=== PATIENT | female | born 1940 | race Caucasian/White ===

== ENCOUNTER 2018-10-26 10:54 | Inpatient (IN) ==
[2018-10-31] MEDS ORDERED: traMADol 50 MG TABLET PO PRN (18:20)
[2018-10-31] MEDS ORDERED: Melatonin 3 MG TABLET PO PRN (18:20)
[2018-10-31] MEDS ORDERED: Sennosides 8.6 MG TABLET PO PRN (18:20)
[2018-10-31] MEDS ORDERED: Acyclovir 200 MG CAPSULE PO PRN (18:20)
[2018-10-31] MEDS: *HR* Rivaroxaban 10 MG TABLET PO SCH (19:32)
[2018-10-31] MEDS: Gabapentin 100 MG CAPSULE PO SCH (20:27)
[2018-10-31] MEDS: Famotidine 20 MG TABLET PO SCH (20:27)
[2018-10-31] MEDS: FluocinoNIDE 0.05% CRM 15 GM TUBE TP SCH (20:27)
[2018-10-31] MEDS: Furosemide 20 MG TABLET PO SCH (20:27)
[2018-11-01 05:39] LABS: Basophils % 0.4 %; Eosinophils # 0.2 K/mcL (0.0-0.6); Eosinophils % 2.4 %; Hemoglobin 8.7 g/dL (11.5-15.4); Immature Granulocytes % 6.4 % (0-4); Lymphocytes # 1.4 K/mcL (0.6-4.6); Lymphocytes % 14.8 %; Mean Corpuscular HGB Conc 31.1 g/dL (31.6-35.5); Mean Corpuscular Hemoglobin 30.2 pg (28.0-33.3); Mean Corpuscular Volume 97.2 fL (83.0-100.0); Mean Platelet Volume 9.2 fL (9.4-12.4); Monocytes # 0.8 K/mcL (0.0-1.3); Monocytes % 9.1 %; Neutrophils # 6.1 K/mcL (1.6-8.9); Platelet Count 157 K/mcL (140-400); Red Blood Count 2.88 M/mcL (3.82-4.97); Red Cell Distribution Width 17.6 % (11.5-14.5); Segmented Neutrophils % 66.9 %; White Blood Count 9.1 K/mcL (4.3-11.1)
[2018-11-01 05:53] LABS: BUN/Creatinine Ratio 22 (6-26); Blood Urea Nitrogen 17 mg/dL (8-23); Calcium 8.6 mg/dL (8.6-10.3); Carbon Dioxide 36 mEq/L (23-29); Chloride 91 mEq/L (98-107); Glucose 117 mg/dL (70-105); Osmolality,Calculated 279 (280-300); Potassium 3.1 mEq/L (3.5-5.1); Sodium 133 mEq/L (136-145); eGFR For African Americans > 60 (> 60); eGFR For Non-African Americans > 60 (> 60)
[2018-11-01] MEDS: Aspirin Enteric Coated 81 MG Tablet PO SCH (07:56)
[2018-11-01] MEDS: *HR* Rivaroxaban 10 MG TABLET PO SCH (07:56)
[2018-11-01] MEDS: Venlafaxine XR (24 HR) 75 MG CAP.ER.24H PO SCH (07:56)
[2018-11-01] MEDS: *HR* Amiodarone 200 MG TABLET PO SCH (07:56)
[2018-11-01] MEDS: Cholecalciferol (D-3) 1,000 UNIT (25MCG) TABLET PO SCH (07:56)
[2018-11-01] MEDS: Lactobacillus 1 EACH CAP.SPRINK PO SCH (07:56)
[2018-11-01] MEDS: Famotidine 20 MG TABLET PO SCH ×2 (07:56→20:30)
[2018-11-01] MEDS: Gabapentin 100 MG CAPSULE PO SCH ×3 (07:56→20:30)
[2018-11-01] MEDS: Furosemide 20 MG TABLET PO SCH ×2 (07:56→20:29)
[2018-11-01] MEDS: FluocinoNIDE 0.05% CRM 15 GM TUBE TP SCH ×2 (09:23→20:26)
--- NOTE | 2018-11-01 10:49 | Internal Med History&Physical ---
Date of Encounter: 11/01/18 Time of Encounter: 10:45 Assessment and Plan (1) S/P mitral valve repair Current visit: Yes Status: Acute Patient was transferred this facility for further rehabilitation due to weakness secondary to her cardiac surgery, in which she had both a try cuspid and a mitral valve repair, maze procedure and a ICD implantation. Patient had an uneventful recovery and currently denies any discomforts or shortness of breath. Surgical incision appears to be healing well. Therapy evaluation with recommendations pending. Continue with current plan of care. Patient educated on chest precautions and instructed on use of ISE. (2) S/P tricuspid valve repair Current visit: Yes Status: Acute As mentioned above patient's surgical incision appears healthy. We will continue to monitor (3) Afib Current visit: Yes Status: Chronic No acute issues. Patient's heart rate remains irregular with controlled rate less than 100. ICD [address]. We will continue with current medications and monitor as she progresses to therapy. Qualifiers: Atrial fibrillation type: paroxysmal Qualified Code(s): I48.0 - Paroxysmal atrial fibrillation (4) GALEN (obstructive sleep apnea) Current visit: Yes Status: Chronic No issues. Patient has her BiPAP from home a uses it nightly Internal Medicine - H&P: HPI Chief complaint: MV repair Admitted From: Hospital to Hospital Transfer Plans for Post Hospital Care: Home History of present illness: Ms. Sexton is a 77 year old female, who was admitted to this facility for rehabilitation following cardiac surgery. Patient was admitted to an [facility] where she received a mitral and tricuspid valve repair, a biatrial maze procedure and eventually had ICD implanted. Patient states that she continues to have atrial fibrillation after her maze procedure and that her surgeon decided to place the defibrillator. Otherwise, she had a uneventful recovery and was transferred to this facility for further rehabilitation due to generalized weakness secondary to her cardiac surgery. She states that her pain has been minimal and well controlled with current pain medications. She denies any dyspnea and states that she is been using her ISE well. Midline chest incision appears to be healing well. Small dressing to epigastric area from previous chest tube sites which is dry and intact. Patient has a history of mitral valve and tricuspid valve prolapse, CHF, pulmonary hypertension, atrial fibrillation, cardiomyopathy, and hypertension. Patient also has a history of GALEN a, which she uses a BiPAP nightly. Remote breath CA Past Med Surg Social Fam HX - Past Medical History Medical history: arthritis, atrial fibrillation, cancer, cardiomyopathy, CHF, hypertension, malignancy, valvular heart disease Additional medical history: water retention, hot flashes Psychiatric history: anxiety - Past Surgical History Surgical History: appendectomy, hysterectomy Additional surgical history: bilateral breast mastectomy. T&A. Left hip replacement. mitral and triscupid valve repair. Pacer/AICD - Social History Smoking Status: Former smoker Smokeless Tobacco Status: No Alcohol use: occasionally Drug use: none - Family History Mother Hx Family Cardiac Disorders: Yes (afib, rheumatic heart disease) Father Hx Family Cancer: Yes (prostate) Internal Medicine - H&P: Meds Cholecalciferol (Vitamin D3) [Vitamin D] 1,000 unit PO DAILY 08/22/17 [History] Effexor 75 mg PO DAILY 08/22/17 [History] Lasix 40 mg PO BID 08/22/17 [History] Rivaroxaban [Xarelto] 20 mg PO DAILY 08/22/17 [History] Potassium 20 meq PO DAILY 12/25/17 [History] Acetaminophen [Tylenol] 1,000 mg PO Q8H PRN 10/31/18 [History] Acyclovir [Zovirax] 800 mg PO TID PRN 10/31/18 [History] Amiodarone [Cordarone] 200 mg PO DAILY 10/31/18 [History] Aspirin Enteric Coated [Aspirin EC] 81 mg PO DAILY 10/31/18 [History] Atorvastatin [Lipitor] 40 mg PO HS 10/31/18 [History] Betamethasone Dipropionate 15 gm TP BID 10/31/18 [History] Carvedilol [Coreg] 3.125 mg PO BIDWM 10/31/18 [History] DiphenhydraMINE [Benadryl] 50 mg PO Q6H PRN 10/31/18 [History] Gabapentin [Neurontin] 100 mg PO TID 10/31/18 [History] Glucos Sul 2Kcl/MSM/Chond/C/Mn [Glucosamine Chondroitin Cap] 2 each PO DAILY 10/31/18 [History] Lactobacillus Combination No.8 [Adult Probiotic] 1 each PO DAILY 10/31/18 [History] Melatonin [Melatin] 6 mg PO HS PRN 10/31/18 [History] Polyethylene Glycol 3350 [MiraLAX] 17 gm PO DAILY 10/31/18 [History] Sennosides [Senokot] 8.6 mg PO HS PRN 10/31/18 [History] Tramadol HCl [Ultram] 50 mg PO Q8H PRN 10/31/18 [History] Allergy/AdvReac Type Severity Reaction Status Date / Time Amoxicillin [From Augmentin] Allergy Hives Verified 10/31/18 16:58 celecoxib [From Celebrex] Allergy Itching Verified 09/23/17 14:13 clavulanic acid Allergy Hives Verified 10/31/18 16:58 [From Augmentin] propoxyphene [From Darvon] Allergy Hallucinati Verified 08/22/17 10:16 ng adhesive tape AdvReac See Verified 10/31/18 16:58 Comments All Systems PM: A 10-system review of systems was performed and is negative for pertinent findings except as documented above in the HPI. - Constitutional Constitutional: as per HPI - EENT Eyes: as per HPI, no change in vision, no discharge, no pain, no photophobia Ears: as per HPI, no ear discharge, no ear pain, no tinnitus Nose, mouth and throat: as per HPI, no dysphagia, no nasal discharge, no neck pain, no sore throat - Breasts Breasts: as per HPI - Cardiovascular Cardiovascular ROS IM: as per HPI, no chest pain, no diaphoresis, no dyspnea, no lightheadedness, no palpitations, no syncope - Respiratory Respiratory: as per HPI, no cough, no dyspnea, no wheezing, no excessive phlegm production - Gastrointestinal Gastrointestinal: as per HPI, no abdominal pain, no diarrhea, no hematemesis, no hematochezia, no melena, no nausea, no vomiting - Genitourinary Genitourinary: as per HPI, no change in urinary stream, no dysuria, no flank pain, no hematuria - Musculoskeletal Musculoskeletal ROS IM: as per HPI, no numbness, no tingling - Integumentary Integumentary IM: as per HPI, no rash, no unusual bruising - Neurological Neurological ROS: as per HPI, no confusion, no convulsions, no focal weakness, no numbness, no tingling, no tremor(s) - Hematologic/Lymphatic Hematologic/Lymphatic: no easy bruising - Constitutional Vitals: Temp Pulse Resp BP Pulse Ox 97.9 F 88 17 134/77 98 11/01/18 07:10 11/01/18 07:10 11/01/18 07:10 11/01/18 10:12 11/01/18 07:10 General appearance: Present: A&O X 3, pleasant - Head Head exam: Present: atraumatic, normocephalic - Eye Eye exam: Present: PERRL, conjuntiva pink, sclera anicteric Pupils: Present: PERRL - Neck Neck exam general surgery: Present: supple, trachea midline. Absent: lymphadenopathy - Respiratory Respiratory exam: Present: decreased breath sounds, CTAB, rales. Absent: accessory muscle use, rhonchi, wheezes Additional comments: Patient noted to have fine posterior bibasilar rales, otherwise lungs clear. Respiratory effort appears relaxed. Patient denies any productive cough. - Cardiovascular Cardiovascular exam: Present: irregular rhythm, RRR, +S1, +S2. Absent: diastolic murmur, gallop, rubs, systolic murmur Additional comments: Patient continues with irregular heart rate with a controlled ventricular rate less than 100. Midline chest incision appears dry and intact. Small dressing to epigastric area from previous chest tube site appears dry and intact. Left subclavian surgical incision is dry and intact from previous ICD implant - GI/Abdominal GI/Abdominal exam: Present: normal bowel sounds, soft, no peritoneal signs. Absent: distended, tenderness - Extremities Exam Extremities exam: Present: warm, radial pulses palpable and symmetrical. Absent: calf tenderness, cyanotic, pedal edema - Neurological Exam Neurological exam: Present: CN II-XII intact, oriented X3, no focal deficits. Absent: pronater drift, facial droop, speech deficit - Skin Skin exam: Present: dry, intact Internal Med - H&P Results - Labs CBC & Chem 7: 11/01/18 05:25 11/01/18 05:25 Labs: Short CBC 11/01/18 Range/Units 05:25 WBC 9.1 (4.3-11.1) K/mcL Hgb 8.7 L (11.5-15.4) g/dL Hct 28.0 L (35.3-44.9) % Plt Count 157 (140-400) K/mcL Neutrophils # 6.1 (1.6-8.9) K/mcL BMP 11/01/18 05:25 Sodium 133 L Potassium 3.1 L Chloride 91 L Carbon Dioxide 36 H BUN 17 Creatinine 0.77 Glucose 117 H Calcium 8.6
[2018-11-02] MEDS: *HR* Rivaroxaban 10 MG TABLET PO SCH (08:53)
[2018-11-02] MEDS: Lactobacillus 1 EACH CAP.SPRINK PO SCH (08:53)
[2018-11-02] MEDS: Venlafaxine XR (24 HR) 75 MG CAP.ER.24H PO SCH (08:53)
[2018-11-02] MEDS: *HR* Amiodarone 200 MG TABLET PO SCH (08:53)
[2018-11-02] MEDS: Gabapentin 100 MG CAPSULE PO SCH ×3 (08:53→20:29)
[2018-11-02] MEDS: Famotidine 20 MG TABLET PO SCH ×2 (08:53→20:29)
[2018-11-02] MEDS: Furosemide 20 MG TABLET PO SCH ×2 (08:53→20:29)
[2018-11-02] MEDS: Cholecalciferol (D-3) 1,000 UNIT (25MCG) TABLET PO SCH (08:53)
[2018-11-02] MEDS: Aspirin Enteric Coated 81 MG Tablet PO SCH (08:53)
[2018-11-02] MEDS: FluocinoNIDE 0.05% CRM 15 GM TUBE TP SCH ×2 (08:54→20:29)
--- NOTE | 2018-11-02 11:10 | Internal Med Progress Note ---
Date of Encounter: 11/02/18 Time of Encounter: 11:07 - Assessment and plan (1) S/P mitral valve repair Current Visit: Yes Status: Acute Assessment and plan: No acute issues. Surgical incisions remains healthy. States pain tolerable with current meds. Denies any dyspnea. States therapy is going well. Continue on current meds and plan of care. (2) S/P tricuspid valve repair Current Visit: Yes Status: Acute Assessment and plan: No acute issues. Surgical incisions remains healthy. States pain tolerable with current meds. Denies any dyspnea. States therapy is going well. Continue on current meds and plan of care. (3) Afib Current Visit: Yes Status: Chronic Assessment and plan: Irregular HR with controlled ventricular rate at 90-100. No acute issues. Continue on current meds. Patient remains on Coreg. Also on Xarelto and ASA. Qualifiers: Atrial fibrillation type: paroxysmal Qualified Code(s): I48.0 - Paroxysmal atrial fibrillation (4) GALEN (obstructive sleep apnea) Current Visit: Yes Status: Chronic Assessment and plan: Continues compliant with BIPAP at night - Time Spent With Patient less than 15 minutes - Subjective Interval history: Patient appears relaxed and currently denies any discomforts or dyspnea. States compliance with ISE. States that therapy has been progressing well. - Constitutional Vitals: Temp Pulse Resp BP Pulse Ox 98.0 F 106 18 110/71 93 11/02/18 08:14 11/02/18 08:14 11/02/18 08:14 11/02/18 08:14 11/02/18 08:14 General appearance: Present: A&O X 3, pleasant - Head Head exam: Present: atraumatic, normocephalic - Eye Eye exam: Present: PERRL, conjuntiva pink, sclera anicteric Pupils: Present: PERRL - Neck Neck exam general surgery: Present: supple, trachea midline. Absent: lymphadenopathy - Respiratory Respiratory exam: Present: decreased breath sounds, CTAB, rales. Absent: accessory muscle use, rhonchi, wheezes Additional comments: fine posterior bibasilar rales, otherwise CTA. RR eupneic - Cardiovascular Cardiovascular exam: Present: RRR, +S1, +S2. Absent: diastolic murmur, gallop, rubs, systolic murmur Additional comments: Midline chest incision remains healthy and intact. Epigastric dsg from previous chest tube site remains dry and intact. Small left SC surgical incision for ICD remains healthy and intact. - GI/Abdominal GI/Abdominal exam: Present: normal bowel sounds, soft, no peritoneal signs. Absent: distended, tenderness - Extremities Exam Extremities exam: Present: pedal edema, warm, radial pulses palpable and symmetrical. Absent: calf tenderness, cyanotic Additional comments: slight nonpitting. - Neurological Exam Neurological exam: Present: CN II-XII intact, oriented X3, no focal deficits. Absent: pronater drift, facial droop, speech deficit - Skin Skin exam: Present: dry, intact Internal Medicine: Result - Labs CBC & Chem 7: 11/01/18 05:25 11/01/18 05:25 Consult Discharge Plan - Plan Referrals: Rupesh Ledesma [Primary Care Provider] -
[2018-11-02 14:10] LABS: Alanine Aminotransferase 44 Units/L (7-52); Albumin 3.5 g/dL (3.5-5.7); Albumin/Globulin Ratio 1.1 (1.1-2.2); Alkaline Phosphatase 145 Units/L (34-104); Aspartate Amino Transferase 42 Units/L (13-39); BUN/Creatinine Ratio 25 (6-26); Bilirubin,Total 0.6 mg/dL (0.3-1.0); Blood Urea Nitrogen 20 mg/dL (8-23); Calcium 8.7 mg/dL (8.6-10.3); Carbon Dioxide 34 mEq/L (23-29); Chloride 89 mEq/L (98-107); Globulin 3.1 g/dL (2.4-3.5); Glucose 124 mg/dL (70-105); Osmolality,Calculated 278 (280-300); Potassium 2.9 mEq/L (3.5-5.1); Sodium 132 mEq/L (136-145); Total Protein 6.6 g/dL (6.4-8.9); eGFR For African Americans > 60 (> 60); eGFR For Non-African Americans > 60 (> 60)
[2018-11-02] MEDS: Magnesium Oxide 400 MG TABLET PO SCH (20:29)
[2018-11-03] MEDS: Lactobacillus 1 EACH CAP.SPRINK PO SCH (07:49)
[2018-11-03] MEDS: *HR* Rivaroxaban 10 MG TABLET PO SCH (07:49)
[2018-11-03] MEDS: Aspirin Enteric Coated 81 MG Tablet PO SCH (07:49)
[2018-11-03] MEDS: Gabapentin 100 MG CAPSULE PO SCH ×3 (07:49→20:12)
[2018-11-03] MEDS: Furosemide 20 MG TABLET PO SCH ×2 (07:50→20:12)
[2018-11-03] MEDS: Venlafaxine XR (24 HR) 75 MG CAP.ER.24H PO SCH (07:50)
[2018-11-03] MEDS: Cholecalciferol (D-3) 1,000 UNIT (25MCG) TABLET PO SCH (07:50)
[2018-11-03] MEDS: Famotidine 20 MG TABLET PO SCH ×2 (07:50→20:13)
[2018-11-03] MEDS: Magnesium Oxide 400 MG TABLET PO SCH ×2 (07:50→20:12)
[2018-11-03] MEDS: *HR* Amiodarone 200 MG TABLET PO SCH (07:51)
[2018-11-03] MEDS: FluocinoNIDE 0.05% CRM 15 GM TUBE TP SCH ×2 (07:51→20:15)
--- NOTE | 2018-11-03 09:40 | Internal Med Progress Note ---
Date of Encounter: 11/03/18 Time of Encounter: 09:38 - Assessment and plan (1) S/P mitral valve repair Current Visit: Yes Status: Acute Assessment and plan: No acute issues. Surgical incisions remains healthy. States pain tolerable with current meds. Patient with complaints of slight dyspnea during ambulation to her room from therapy. Noted continue +2 edema to lower legs. Patient's heart rate slightly elevated and remains in atrial fibrillation. We will obtain labs and chest x-ray for further evaluation. Patient with history of CHF. States therapy is going well. Continue on current meds and plan of care. (2) S/P tricuspid valve repair Current Visit: Yes Status: Acute Assessment and plan: No acute issues. Surgical incisions remains healthy. States pain tolerable with current meds. Patient with complaints of slight dyspnea during ambulation to her room from therapy. Noted continue +2 edema to lower legs. Patient's heart rate slightly elevated and remains in atrial fibrillation. We will obtain labs and chest x-ray for further evaluation. Patient with history of CHF. States therapy is going well. Continue on current meds and plan of care. (3) Afib Current Visit: Yes Status: Chronic Assessment and plan: Irregular HR with controlled ventricular rate at 90-100. No acute issues. Continue on current meds. We will review labs when available. Patient has had issues with hypokalemia, requiring replacement Patient remains on Coreg. Also on Xarelto and ASA. Qualifiers: Atrial fibrillation type: paroxysmal Qualified Code(s): I48.0 - Paroxysmal atrial fibrillation (4) GALEN (obstructive sleep apnea) Current Visit: Yes Status: Chronic Assessment and plan: Continues compliant with BIPAP at night (5) CHF (congestive heart failure) Current Visit: Yes Status: Acute Assessment and plan: Patient with complaints of slight dyspnea during ambulation to her room from therapy. Noted continue +2 edema to lower legs. Patient's heart rate slightly elevated and remains in atrial fibrillation. We will obtain labs and chest x- ray for further evaluation. Patient with history of CHF. States therapy is going well. Continue on current meds and plan of care. Qualifiers: Heart failure type: unspecified Heart failure chronicity: unspecified Qualified Code(s): I50.9 - Heart failure, unspecified - Time Spent With Patient less than 15 minutes - Subjective Interval history: Patient appears relaxed and currently denies any discomforts , stating that her pain has been well-controlled with current medications. Patient has complaints of dyspnea during exertion of ambulating during therapy. Denies any productive cough. Patient also voiced concerns about her chest tube insertion sites with the left epigastric chest tube site showing a minimal amount of his type drainage. - Constitutional Vitals: Temp Pulse Resp BP Pulse Ox 97.7 F 98 14 118/70 99 11/03/18 07:27 11/03/18 07:45 11/03/18 07:27 11/03/18 07:45 11/03/18 07:27 General appearance: Present: A&O X 3, pleasant - Head Head exam: Present: atraumatic, normocephalic - Eye Eye exam: Present: PERRL, conjuntiva pink, sclera anicteric Pupils: Present: PERRL - Neck Neck exam general surgery: Present: supple, trachea midline. Absent: lymphadenopathy - Respiratory Respiratory exam: Present: decreased breath sounds, CTAB, rales. Absent: accessory muscle use, rhonchi, wheezes Additional comments: Patient shows fine care basilar rales, otherwise lungs are clear to auscultation. Respiratory effort appears relaxed. - Cardiovascular Cardiovascular exam: Present: irregular rhythm, RRR, +S1, +S2. Absent: diastolic murmur, gallop, rubs, systolic murmur Additional comments: Continues with irregular heart rate with controlled ventricular rate less than 100 - GI/Abdominal GI/Abdominal exam: Present: normal bowel sounds, soft, no peritoneal signs. Absent: distended, tenderness - Extremities Exam Extremities exam: Present: warm, radial pulses palpable and symmetrical. Absent: calf tenderness, cyanotic, pedal edema - Neurological Exam Neurological exam: Present: CN II-XII intact, oriented X3, no focal deficits. Absent: pronater drift, facial droop, speech deficit - Skin Skin exam: Present: dry, intact Additional comments: Midline chest incision appears to be healing well area patient with 2 chest tube insertion sites to the epigastric area which remains slightly gapped open. Left chest tube insertion site and has a minimal amount of serous type drainage present Internal Medicine: Result - Labs CBC & Chem 7: 11/01/18 05:25 11/02/18 13:13 Labs: BMP 11/02/18 13:13 Sodium 132 L Potassium 2.9 L Chloride 89 L Carbon Dioxide 34 H BUN 20 Creatinine 0.81 Glucose 124 H Calcium 8.7 Liver Function 11/02/18 Range/Units 13:13 Total Bilirubin 0.6 (0.3-1.0) mg/dL AST 42 H (13-39) Units/L ALT 44 (7-52) Units/L Alkaline Phosphatase 145 H (34-104) Units/L Albumin 3.5 (3.5-5.7) g/dL Consult Discharge Plan - Plan Referrals: Rupesh Ledesma [Primary Care Provider] -
[2018-11-03 10:56] LABS: Hematocrit 29.7 % (35.3-44.9); Hemoglobin 9.1 g/dL (11.5-15.4); Mean Corpuscular HGB Conc 30.6 g/dL (31.6-35.5); Mean Platelet Volume 9.9 fL (9.4-12.4); Platelet Count 191 K/mcL (140-400); Red Blood Count 3.03 M/mcL (3.82-4.97); Red Cell Distribution Width 17.9 % (11.5-14.5); White Blood Count 9.6 K/mcL (4.3-11.1)
[2018-11-03 11:11] LABS: Alanine Aminotransferase 40 Units/L (7-52); Albumin 3.7 g/dL (3.5-5.7); Albumin/Globulin Ratio 1.1 (1.1-2.2); Alkaline Phosphatase 158 Units/L (34-104); Aspartate Amino Transferase 36 Units/L (13-39); BUN/Creatinine Ratio 23 (6-26); Bilirubin,Total 0.8 mg/dL (0.3-1.0); Blood Urea Nitrogen 18 mg/dL (8-23); Calcium 8.7 mg/dL (8.6-10.3); Carbon Dioxide 35 mEq/L (23-29); Chloride 90 mEq/L (98-107); Globulin 3.3 g/dL (2.4-3.5); Glucose 126 mg/dL (70-105); Magnesium 1.9 mg/dL (1.6-2.6); Osmolality,Calculated 281 (280-300); Potassium 3.3 mEq/L (3.5-5.1); Sodium 134 mEq/L (136-145); eGFR For African Americans > 60 (> 60); eGFR For Non-African Americans > 60 (> 60)
[2018-11-03] MEDS ORDERED: Furosemide 40 MG TABLET PO ONE (12:15)
[2018-11-04 06:35] LABS: Basophils % 0.5 %; Eosinophils # 0.2 K/mcL (0.0-0.6); Eosinophils % 3.2 %; Hematocrit 25.5 % (35.3-44.9); Hemoglobin 7.9 g/dL (11.5-15.4); Immature Granulocytes % 1.4 % (0-4); Lymphocytes % 15.4 %; Mean Corpuscular Hemoglobin 30.7 pg (28.0-33.3); Mean Corpuscular Volume 99.2 fL (83.0-100.0); Mean Platelet Volume 9.7 fL (9.4-12.4); Monocytes # 0.6 K/mcL (0.0-1.3); Monocytes % 8.7 %; Neutrophils # 4.6 K/mcL (1.6-8.9); Platelet Count 167 K/mcL (140-400); Red Blood Count 2.57 M/mcL (3.82-4.97); Red Cell Distribution Width 18.2 % (11.5-14.5); Segmented Neutrophils % 70.8 %; White Blood Count 6.5 K/mcL (4.3-11.1)
[2018-11-04 06:48] LABS: BUN/Creatinine Ratio 21 (6-26); Blood Urea Nitrogen 18 mg/dL (8-23); Calcium 8.4 mg/dL (8.6-10.3); Carbon Dioxide 39 mEq/L (23-29); Chloride 90 mEq/L (98-107); Glucose 105 mg/dL (70-105); Magnesium 2.1 mg/dL (1.6-2.6); Osmolality,Calculated 284 (280-300); Potassium 2.8 mEq/L (3.5-5.1); Sodium 136 mEq/L (136-145); eGFR For African Americans > 60 (> 60); eGFR For Non-African Americans > 60 (> 60)
[2018-11-04] MEDS: Aspirin Enteric Coated 81 MG Tablet PO SCH (09:07)
[2018-11-04] MEDS: Furosemide 20 MG TABLET PO SCH (09:07)
[2018-11-04] MEDS: Venlafaxine XR (24 HR) 75 MG CAP.ER.24H PO SCH (09:08)
[2018-11-04] MEDS: Magnesium Oxide 400 MG TABLET PO SCH ×2 (09:08→21:04)
[2018-11-04] MEDS: *HR* Amiodarone 200 MG TABLET PO SCH (09:08)
[2018-11-04] MEDS: *HR* Rivaroxaban 10 MG TABLET PO SCH (09:08)
[2018-11-04] MEDS: Cholecalciferol (D-3) 1,000 UNIT (25MCG) TABLET PO SCH (09:09)
[2018-11-04] MEDS: Lactobacillus 1 EACH CAP.SPRINK PO SCH (09:09)
[2018-11-04] MEDS: Famotidine 20 MG TABLET PO SCH ×2 (09:09→21:04)
[2018-11-04] MEDS: Gabapentin 100 MG CAPSULE PO SCH ×3 (09:09→21:04)
[2018-11-04] MEDS: FluocinoNIDE 0.05% CRM 15 GM TUBE TP SCH ×2 (09:10→21:04)
--- NOTE | 2018-11-04 15:37 | Internal Med Progress Note ---
Date of Encounter: 11/04/18 Time of Encounter: 15:40 - Subjective Interval history: - Assessment and plan (1) S/P mitral valve repair Current Visit: Yes Status: Acute Assessment and plan: No acute issues. Surgical incisions remains healthy. States pain tolerable with current meds. Patient with complaints of slight dyspnea during ambulation to her room from therapy. Noted continue +2 edema to lower legs. Patient's heart rate slightly elevated and remains in atrial fibrillation. We will obtain labs and chest x-ray for further evaluation. Patient with history of CHF. States therapy is going well. Continue on current meds and plan of care. (2) S/P tricuspid valve repair Current Visit: Yes Status: Acute Assessment and plan: No acute issues. Surgical incisions remains healthy. States pain tolerable with current meds. Patient with complaints of slight dyspnea during ambulation to her room from therapy. Noted continue +2 edema to lower legs. Patient's heart rate slightly elevated and remains in atrial fibrillation. We will obtain labs and chest x-ray for further evaluation. Patient with history of CHF. States therapy is going well. Continue on current meds and plan of care. (3) Afib Current Visit: Yes Status: Chronic Assessment and plan: Irregular HR with controlled ventricular rate at 90-100. No acute issues. Continue on current meds. We will review labs when available. Patient has had issues with hypokalemia, requiring replacement Patient remains on Coreg. Also on Xarelto and ASA. Qualifiers: Atrial fibrillation type: paroxysmal Qualified Code(s): I48.0 - Paroxysmal atrial fibrillation (4) GALEN (obstructive sleep apnea) Current Visit: Yes Status: Chronic Assessment and plan: Continues compliant with BIPAP at night (5) CHF (congestive heart failure) Current Visit: Yes Status: Acute Assessment and plan: Patient with complaints of slight dyspnea during ambulation to her room from therapy. Noted continue +2 edema to lower legs. Patient's heart rate slightly elevated and remains in atrial fibrillation. We will obtain labs and chest x- ray for further evaluation. Patient with history of CHF. States therapy is going well. Continue on current meds and plan of care. Qualifiers: Heart failure type: unspecified Heart failure chronicity: unspecified Qualified Code(s): I50.9 - Heart failure, unspecified - Time Spent With Patient less than 15 minutes - Subjective Interval history: Patient that her pain has been well-controlled with current medications. Patient has complaints of dyspnea during exertion of ambulating during therapy. Denies any productive cough or pain from chest tube insertion sites - EXAM General appearance: Present: A&O X 3, pleasant - Head Head exam: Present: atraumatic, normocephalic - Eye Eye exam: Present: PERRL, conjuntiva pink, sclera anicteric Pupils: Present: PERRL - Neck Neck exam general surgery: Present: supple, trachea midline. Absent: lymphadenopathy - Respiratory Respiratory exam: Present: decreased breath sounds, CTAB, rales. Absent: accessory muscle use, rhonchi, wheezes Additional comments: Patient shows fine care basilar rales, otherwise lungs are clear to auscultation. Respiratory effort appears relaxed. - Cardiovascular Cardiovascular exam: Present: irregular rhythm, RRR, +S1, +S2. Absent: diastolic murmur, gallop, rubs, systolic murmur Additional comments: Continues with irregular heart rate with controlled ventricular rate less than 100 - GI/Abdominal GI/Abdominal exam: Present: normal bowel sounds, soft, no peritoneal signs. Absent: distended, tenderness - Extremities Exam Extremities exam: Present: warm, radial pulses palpable and symmetrical. Absent: calf tenderness, cyanotic, pedal edema - Neurological Exam Neurological exam: Present: CN II-XII intact, oriented X3, no focal deficits. Absent: pronater drift, facial droop, speech deficit - Skin Skin exam: Present: dry, intact - Constitutional Vitals: Temp Pulse Resp BP Pulse Ox 98.2 F 96 16 110/68 96 11/04/18 07:10 11/04/18 07:10 11/04/18 07:10 11/04/18 07:10 11/04/18 07:10 General appearance: Present: A&O X 3, pleasant Internal Medicine: Result - Labs CBC & Chem 7: 11/05/18 05:19 11/05/18 05:19 Labs: Short CBC 11/04/18 Range/Units 06:10 WBC 6.5 (4.3-11.1) K/mcL Hgb 7.9 L (11.5-15.4) g/dL Hct 25.5 L (35.3-44.9) % Plt Count 167 (140-400) K/mcL Neutrophils # 4.6 (1.6-8.9) K/mcL [facility] 11/04/18 06:10 Sodium 136 Potassium 2.8 L Chloride 90 L Carbon Dioxide 39 H BUN 18 Creatinine 0.85 Glucose 105 Calcium 8.4 L Consult Discharge Plan - Plan Referrals: Rupesh Ledesma [Primary Care Provider] -
[2018-11-05 05:28] LABS: Basophils % 0.5 %; Eosinophils # 0.3 K/mcL (0.0-0.6); Eosinophils % 3.9 %; Hematocrit 27.2 % (35.3-44.9); Hemoglobin 8.3 g/dL (11.5-15.4); Immature Granulocytes % 0.9 % (0-4); Lymphocytes # 0.9 K/mcL (0.6-4.6); Lymphocytes % 13.3 %; Mean Corpuscular HGB Conc 30.5 g/dL (31.6-35.5); Mean Corpuscular Hemoglobin 30.5 pg (28.0-33.3); Mean Platelet Volume 9.5 fL (9.4-12.4); Monocytes # 0.6 K/mcL (0.0-1.3); Monocytes % 9.6 %; Neutrophils # 4.7 K/mcL (1.6-8.9); Platelet Count 171 K/mcL (140-400); Red Blood Count 2.72 M/mcL (3.82-4.97); Red Cell Distribution Width 18.3 % (11.5-14.5); Segmented Neutrophils % 71.8 %; White Blood Count 6.5 K/mcL (4.3-11.1)
[2018-11-05 05:58] LABS: Potassium 3.6 mEq/L (3.5-5.1)
[2018-11-05 05:59] LABS: BUN/Creatinine Ratio 23 (6-26); Blood Urea Nitrogen 18 mg/dL (8-23); Calcium 8.7 mg/dL (8.6-10.3); Carbon Dioxide 36 mEq/L (23-29); Chloride 93 mEq/L (98-107); Glucose 113 mg/dL (70-105); Osmolality,Calculated 285 (280-300); Sodium 136 mEq/L (136-145); eGFR For African Americans > 60 (> 60); eGFR For Non-African Americans > 60 (> 60)
[2018-11-05] MEDS: Lactobacillus 1 EACH CAP.SPRINK PO SCH (08:50)
[2018-11-05] MEDS: *HR* Amiodarone 200 MG TABLET PO SCH (08:50)
[2018-11-05] MEDS: Famotidine 20 MG TABLET PO SCH ×2 (08:50→19:32)
[2018-11-05] MEDS: Gabapentin 100 MG CAPSULE PO SCH ×3 (08:50→19:32)
[2018-11-05] MEDS: Aspirin Enteric Coated 81 MG Tablet PO SCH (08:50)
[2018-11-05] MEDS: Cholecalciferol (D-3) 1,000 UNIT (25MCG) TABLET PO SCH (08:50)
[2018-11-05] MEDS: Venlafaxine XR (24 HR) 75 MG CAP.ER.24H PO SCH (08:50)
[2018-11-05] MEDS: *HR* Rivaroxaban 10 MG TABLET PO SCH (08:50)
[2018-11-05] MEDS: Magnesium Oxide 400 MG TABLET PO SCH ×2 (08:50→19:32)
[2018-11-05] MEDS: FluocinoNIDE 0.05% CRM 15 GM TUBE TP SCH ×2 (08:51→19:32)
[2018-11-05 11:54] LABS: % Iron Saturation 15 % (15-50); Iron 47 mcg/dL (50-170); Transferrin 220 mg/dL (203-362)
--- NOTE | 2018-11-05 16:22 | Internal Med Progress Note ---
Date of Encounter: 11/05/18 Time of Encounter: 15:20 - Subjective Interval history: - Assessment and plan (1) S/P mitral valve repair Current Visit: Yes Status: Acute Assessment and plan: No acute issues. Surgical incisions remains healthy. States pain tolerable with current meds. Patient with complaints of slight dyspnea during ambulation to her room from therapy. Noted continue +2 edema to lower legs. Patient remains in atrial fibrillation. Patient with history of CHF on diuretic Has had HYPOKALEMIA replaced extra yesterday and K somewhat improved but still needs extra today will need to recheck levels . (2) S/P tricuspid valve repair Current Visit: Yes Status: Acute Assessment and plan: No acute issues. Surgical incisions remains healthy. States pain tolerable with current meds. Patient with complaints of slight dyspnea during ambulation to her room from therapy. Noted continue +2 edema to lower legs. Patient's heart rate slightly elevated and remains in atrial fibrillation. We will obtain labs and chest x-ray for further evaluation. Patient with history of CHF. States therapy is going well. Continue on current meds and plan of care. (3) Afib Current Visit: Yes Status: Chronic Assessment and plan: Irregular HR with controlled ventricular rate at 90-100. No acute issues. Continue on current meds. We will review labs when available. Patient has had issues with hypokalemia, requiring replacement Patient remains on Coreg. Also on Xarelto and ASA. Has been ANEMIC no active bleeding but will monitor hb stable Qualifiers: Atrial fibrillation type: paroxysmal Qualified Code(s): I48.0 - Paroxysmal atrial fibrillation (4) GALEN (obstructive sleep apnea) Current Visit: Yes Status: Chronic Assessment and plan: Continues compliant with BIPAP at night (5) CHF (congestive heart failure) Current Visit: Yes Status: Acute Assessment and plan: Patient with complaints of slight dyspnea during ambulation to her room from therapy. On Diuretic and has Hypokalemia Noted continue +2 edema to lower legs. Patient's heart rate slightly elevated and remains in atrial fibrillation. Patient with history of CHF. States therapy is going well. Continue on current meds and plan of care. Qualifiers: Heart failure type: unspecified Heart failure chronicity: unspecified Qualified Code(s): I50.9 - Heart failure, unspecified - Time Spent With Patient less than 15 minutes - Subjective Interval history: Patient stable no acute events EXam - Constitutional Vitals: General appearance: Present: A&O X 3, pleasant - Head Head exam: Present: atraumatic, normocephalic - Eye Eye exam: Present: PERRL, conjuntiva pink, sclera anicteric Pupils: Present: PERRL - Neck Neck exam general surgery: Present: supple, trachea midline. Absent: lymphadenopathy - Respiratory Respiratory exam: Present: decreased breath sounds, CTAB, rales. Absent: accessory muscle use, rhonchi, wheezes Additional comments: Patient shows fine care basilar rales, otherwise lungs are clear to auscultation. Respiratory effort appears relaxed. - Cardiovascular Cardiovascular exam: Present: irregular rhythm, RRR, +S1, +S2. Absent: diastolic murmur, gallop, rubs, systolic murmur Additional comments: Continues with irregular heart rate with controlled ventricular rate less than 100 - GI/Abdominal GI/Abdominal exam: Present: normal bowel sounds, soft, no peritoneal signs. Absent: distended, tenderness - Extremities Exam Extremities exam: Present: warm, radial pulses palpable and symmetrical. Ab sent: calf tenderness, cyanotic, pedal edema - Neurological Exam Neurological exam: Present: CN II-XII intact, oriented X3, no focal deficits. Absent: pronater drift, facial droop, speech deficit - Skin Skin exam: Present: dry, intact - Constitutional Vitals: Temp Pulse Resp BP Pulse Ox 98.5 F 102 15 115/77 96 11/05/18 07:20 11/05/18 12:39 11/05/18 07:20 11/05/18 12:39 11/05/18 07:20 General appearance: Present: A&O X 3, pleasant Internal Medicine: Result - Labs CBC & Chem 7: 11/05/18 05:19 11/05/18 05:19 Labs: Short CBC 11/05/18 Range/Units 05:19 WBC 6.5 (4.3-11.1) K/mcL Hgb 8.3 L (11.5-15.4) g/dL Hct 27.2 L (35.3-44.9) % Plt Count 171 (140-400) K/mcL Neutrophils # 4.7 (1.6-8.9) K/mcL BMP 11/05/18 05:19 Sodium 136 Potassium 3.6 D Chloride 93 L Carbon Dioxide 36 H BUN 18 Creatinine 0.78 Glucose 113 H Calcium 8.7 Consult Discharge Plan - Plan Referrals: Rupesh Ledesma [Primary Care Provider] -
[2018-11-06 06:13] LABS: BUN/Creatinine Ratio 19 (6-26); Blood Urea Nitrogen 14 mg/dL (8-23); Calcium 9.2 mg/dL (8.6-10.3); Carbon Dioxide 35 mEq/L (23-29); Chloride 96 mEq/L (98-107); Glucose 111 mg/dL (70-105); Osmolality,Calculated 281 (280-300); Sodium 135 mEq/L (136-145); eGFR For African Americans > 60 (> 60); eGFR For Non-African Americans > 60 (> 60)
[2018-11-06] MEDS: Lactobacillus 1 EACH CAP.SPRINK PO SCH (08:09)
[2018-11-06] MEDS: *HR* Amiodarone 200 MG TABLET PO SCH (08:09)
[2018-11-06] MEDS: Famotidine 20 MG TABLET PO SCH ×2 (08:09→20:20)
[2018-11-06] MEDS: Venlafaxine XR (24 HR) 75 MG CAP.ER.24H PO SCH (08:09)
[2018-11-06] MEDS: Magnesium Oxide 400 MG TABLET PO SCH ×2 (08:09→20:20)
[2018-11-06] MEDS: *HR* Rivaroxaban 10 MG TABLET PO SCH (08:09)
[2018-11-06] MEDS: Cholecalciferol (D-3) 1,000 UNIT (25MCG) TABLET PO SCH (08:10)
[2018-11-06] MEDS: Aspirin Enteric Coated 81 MG Tablet PO SCH (08:10)
[2018-11-06] MEDS: Gabapentin 100 MG CAPSULE PO SCH ×3 (08:10→20:20)
[2018-11-06] MEDS: FluocinoNIDE 0.05% CRM 15 GM TUBE TP SCH (08:10)
--- NOTE | 2018-11-06 08:58 | Electrocardiograph Report ---
[place] [id number] Test Date: 2018-11-03 Pat Name: Isaura Sexton Department: 2001 Room: 105 Gender: F [employer]: Tb : 1940 Requested By: Liang Fajardo Order Number: [id number] Reading MD: Newton Day Measurements Intervals [place] Rate: 96 P: IN: 0 QRS: 9 QRSD: 116 T: 87 QT: 393 QTc: 446 Interpretive Statements ATRIAL FIBRILLATION MODERATE INTRAVENTRICULAR CONDUCTION DELAY NONSPECIFIC ST & T-WAVE ABNORMALITY Electronically Signed On 11-06-2018 8:56:32 EDT by Newton Day
--- NOTE | 2018-11-06 09:52 | Internal Med Progress Note ---
Date of Encounter: 11/06/18 Time of Encounter: 09:50 - Assessment and plan (1) S/P mitral valve repair Current Visit: Yes Status: Acute Assessment and plan: No acute issues. Surgical incisions remains healthy. States pain tolerable with current meds. Patient with improved pulmonary effort, denying any dyspnea during ambulation to her room from therapy. Noted continue +2 edema to lower legs. Patient's heart rate continues to be slightly elevated and remains in atrial fibrillation. Recent labs and chest x-ray were reviewed. Continue on current meds and plan of care. (2) S/P tricuspid valve repair Current Visit: Yes Status: Acute Assessment and plan: No acute issues. Surgical incisions remains healthy. States pain tolerable with current meds. Patient with improved pulmonary effort, denying any dyspnea during ambulation to her room from therapy. Noted continue +2 edema to lower legs. Patient's heart rate continues to be slightly elevated and remains in atrial fibrillation. Recent labs and chest x-ray were reviewed. Continue on current meds and plan of care. (3) Afib Current Visit: Yes Status: Chronic Assessment and plan: Irregular HR with controlled ventricular rate at 90-100. No acute issues. Continue on current meds. Also on Xarelto and ASA. Qualifiers: Atrial fibrillation type: paroxysmal Qualified Code(s): I48.0 - Paroxysmal atrial fibrillation (4) GALEN (obstructive sleep apnea) Current Visit: Yes Status: Chronic Assessment and plan: Continues compliant with BIPAP at night (5) CHF (congestive heart failure) Current Visit: Yes Status: Acute Assessment and plan: Patient states no dyspnea during ambulation during therapy. Noted continue +2 edema to lower legs. Patient's heart rate slightly elevated and remains in atrial fibrillation. Recent labs and CXR show no acute issues. Patient with history of CHF. States therapy is going well. Continue on current meds and plan of care. Qualifiers: Heart failure type: unspecified Heart failure chronicity: unspecified Qualified Code(s): I50.9 - Heart failure, unspecified - Time Spent With Patient less than 15 minutes - Subjective Interval history: Patient appears relaxed and currently denies any discomforts , stating that her pain has been well-controlled with current medications. Patient states no dyspnea during exertion of ambulating during therapy. Denies any productive cough or any palpitations. Patient also voiced concerns about her chest tube insertion sites with the left epigastric chest tube site , but today states that the sites are improved. States continued difficulty with BM. - Constitutional Vitals: Temp Pulse Resp BP Pulse Ox 98.3 F 97 18 117/81 96 11/06/18 07:01 11/06/18 08:08 11/06/18 07:01 11/06/18 08:08 11/06/18 07:01 General appearance: Present: A&O X 3, pleasant - Head Head exam: Present: atraumatic, normocephalic - Eye Eye exam: Present: PERRL, conjuntiva pink, sclera anicteric Pupils: Present: PERRL - Neck Neck exam general surgery: Present: supple, trachea midline. Absent: lymphadenopathy - Respiratory Respiratory exam: Present: decreased breath sounds, CTAB. Absent: accessory muscle use, rales, rhonchi, wheezes - Cardiovascular Cardiovascular exam: Present: irregular rhythm, RRR, +S1, +S2. Absent: diastolic murmur, gallop, rubs, systolic murmur Additional comments: HR irregular, but ventricular rate <100 bpm - GI/Abdominal GI/Abdominal exam: Present: normal bowel sounds, soft, no peritoneal signs. Absent: distended, tenderness - Extremities Exam Extremities exam: Present: warm, radial pulses palpable and symmetrical. Absent: calf tenderness, cyanotic, pedal edema - Neurological Exam Neurological exam: Present: CN II-XII intact, oriented X3, no focal deficits. Absent: pronater drift, facial droop, speech deficit - Skin Skin exam: Present: dry, intact Additional comments: Midline chest incision appears healthy and intact. Patient continues to have dressing to epigastric area from chest tube insertion sites which appeared to be healing well. No drainage noted Internal Medicine: Result - Labs CBC & Chem 7: 11/05/18 05:19 11/06/18 05:45 Labs: BMP 11/06/18 05:45 Sodium 135 L Potassium 4.0 Chloride 96 L Carbon Dioxide 35 H BUN 14 Creatinine 0.72 Glucose 111 H Calcium 9.2 Consult Discharge Plan - Plan Referrals: Rupesh Ledesma [Primary Care Provider] -
[2018-11-06 19:48] LABS: Bilirubin,Urine Large (Negative); Blood,Urine Large (Negative); Clarity,Urine Slightly Cloudy (Clear); Color,Urine Red (Yellow); Glucose,Urine (UA) 100 mg/dL (Normal); Ketones,Urine 15 mg/dL (Negative); Leukocyte Esterase,Urine Large (Negative); Nitrite,Urine Positive (Negative); PH,Urine 8.5 pH Units (5.0-8.0); Protein,Urine >=300 mg/dL (Neg-Trace); Specific Gravity,Urine 1.015 (1.010-1.025)
[2018-11-06 20:04] LABS: Bacteria,Urine Moderate per hpf (None-Few); RBC,Urine 15-30 per hpf (0-3); Squamous Epithelial Cell,Urine Few per lpf (None-Few); WBC,Urine 30-50 per hpf (0-3)
[2018-11-07 06:53] VITALS: BP 95/61
[2018-11-07 07:19] LABS: BUN/Creatinine Ratio 19 (6-26); Blood Urea Nitrogen 14 mg/dL (8-23); Calcium 9.3 mg/dL (8.6-10.3); Carbon Dioxide 32 mEq/L (23-29); Chloride 97 mEq/L (98-107); Glucose 106 mg/dL (70-105); Osmolality,Calculated 281 (280-300); Potassium 3.8 mEq/L (3.5-5.1); Sodium 135 mEq/L (136-145); eGFR For African Americans > 60 (> 60); eGFR For Non-African Americans > 60 (> 60)
[2018-11-07] MEDS: Famotidine 20 MG TABLET PO SCH (07:48)
[2018-11-07] MEDS: *HR* Rivaroxaban 10 MG TABLET PO SCH (07:48)
[2018-11-07] MEDS: Venlafaxine XR (24 HR) 75 MG CAP.ER.24H PO SCH (07:49)
[2018-11-07] MEDS: Lactobacillus 1 EACH CAP.SPRINK PO SCH (07:49)
[2018-11-07] MEDS: Magnesium Oxide 400 MG TABLET PO SCH (07:49)
[2018-11-07] MEDS: Gabapentin 100 MG CAPSULE PO SCH (07:49)
[2018-11-07] MEDS: *HR* Amiodarone 200 MG TABLET PO SCH (07:49)
[2018-11-07] MEDS: Cholecalciferol (D-3) 1,000 UNIT (25MCG) TABLET PO SCH (07:49)
[2018-11-07] MEDS: Aspirin Enteric Coated 81 MG Tablet PO SCH (07:49)
--- NOTE | 2018-11-07 08:30 | Physician Discharge Referral ---
Home Health/Hosp Referral Info Transfer to: Home Health Provider in Charge Post Discharge: PCP - Diagnosis (1) CHF (congestive heart failure) Priority: Primary Status: Acute (2) S/P mitral valve repair Priority: Primary Status: Acute (3) S/P tricuspid valve repair Priority: Primary Status: Acute (4) Afib Priority: Secondary Status: Chronic (5) GALEN (obstructive sleep apnea) Priority: Secondary Status: Chronic - Respiratory Orders Smoking Cessation: Smoking cessation has been advised. For more information, call the [place] Tobacco Quit Line at 4-432-URZG-NOW. - Diet/Nutrition Diet/Nutrition Orders: Cardiac - Activity Activity Orders: Ambulate - Services Needed Following services are medically necessary services: Nursing, Physical Therapy - Transfer Medications Home Medications: Cholecalciferol (Vitamin D3) [Vitamin D] 1,000 unit PO DAILY 08/22/17 [History] Effexor 75 mg PO DAILY 08/22/17 [History] Lasix 40 mg PO BID 08/22/17 [History] Rivaroxaban [Xarelto] 20 mg PO DAILY 08/22/17 [History] Potassium 20 meq PO DAILY 12/25/17 [History] Acetaminophen [Tylenol] 1,000 mg PO Q8H PRN 10/31/18 [History] Acyclovir [Zovirax] 800 mg PO TID PRN 10/31/18 [History] Amiodarone [Cordarone] 200 mg PO DAILY 10/31/18 [History] Aspirin Enteric Coated [Aspirin EC] 81 mg PO DAILY 10/31/18 [History] Atorvastatin [Lipitor] 40 mg PO HS 10/31/18 [History] Betamethasone Dipropionate 15 gm TP BID 10/31/18 [History] Carvedilol [Coreg] 3.125 mg PO BIDWM 10/31/18 [History] DiphenhydraMINE [Benadryl] 50 mg PO Q6H PRN 10/31/18 [History] Gabapentin [Neurontin] 100 mg PO TID 10/31/18 [History] Glucos Sul 2Kcl/MSM/Chond/C/Mn [Glucosamine Chondroitin Cap] 2 each PO DAILY 10/31/18 [History] Lactobacillus Combination No.8 [Adult Probiotic] 1 each PO DAILY 10/31/18 [History] Melatonin [Melatin] 6 mg PO HS PRN 10/31/18 [History] Polyethylene Glycol 3350 [MiraLAX] 17 gm PO DAILY 10/31/18 [History] Sennosides [Senokot] 8.6 mg PO HS PRN 10/31/18 [History] Tramadol HCl [Ultram] 50 mg PO Q8H PRN 10/31/18 [History] Allergies/Adverse Reactions: Allergy/AdvReac Type Severity Reaction Status Date / Time Amoxicillin [From Augmentin] Allergy Hives Verified 10/31/18 16:58 celecoxib [From Celebrex] Allergy Itching Verified 09/23/17 14:13 clavulanic acid Allergy Hives Verified 10/31/18 16:58 [From Augmentin] propoxyphene [From Darvon] Allergy Hallucinati Verified 08/22/17 10:16 ng adhesive tape AdvReac See Verified 10/31/18 16:58 Comments Certification: Further, I certify that my clinical findings support that this patient is homebound (i.e. absences from home require considerable and taxing effort and are for medical reasons or restorationist services or infrequently or short duration when for other reasons) because: Homebound Reason: Patient requires assistance of a person or device to safely leave home, Post-surgery restriction and or conditions limit ability to leave home, Leaving home requires considerable and taxing effort due to condition Attestation: My signature below is to certify that this patient is under my care and that I, or nurse practitioner, or a physician's press assistant and feeder working with me, has a [id number] encounter with this patient.
--- NOTE | 2018-11-07 08:32 | Discharge Summary ---
Orders not resulted at time of discharge: Pending orders 11/06/18 19:40 Culture,Urine [RM] Routine Date of Encounter: 11/07/18 Time of Encounter: 08:30 - Discharge Diagnosis (1) CHF (congestive heart failure) Priority: Secondary Status: Acute Comments: controlled with current meds. f/u with cardiology. Qualifiers: Heart failure type: unspecified Heart failure chronicity: unspecified Qualified Code(s): I50.9 - Heart failure, unspecified (2) S/P mitral valve repair Priority: Primary Status: Acute Comments: f/u with cardiology as scheduled. denies chest pain. (3) S/P tricuspid valve repair Priority: Primary Status: Acute Comments: Denies chest pain. Follow up with cardiology. Continue current medication. (4) Afib Priority: Secondary Status: Chronic Comments: Rate and rhythm controlled. Continue current meds. Qualifiers: Atrial fibrillation type: paroxysmal Qualified Code(s): I48.0 - Paroxysmal atrial fibrillation (5) GALEN (obstructive sleep apnea) Priority: Secondary Status: Chronic Comments: continue Bipap. f/u with PCP on 11/09 Hospital course: Ms. Sexton is a 77 year old female was admitted to this facility for rehabilitation following cardiac surgery. Patient was admitted to an [facility] where she received a mitral and tricuspid valve repair, had ICD implanted. Patient states that she continues to have atrial fibrillation after her maze procedure and that her surgeon decided to place the defibrillator. O therwise, she had a uneventful recovery and was transferred to this facility for further rehabilitation due to generalized weakness secondary to her cardiac surgery. She states that her pain has been minimal and well controlled with current pain medications. Currently ambulating without any assistive device. Discharging to home today. Denies fever, chills, nausea vomiting or diarrhea, shortness of breath or chest pain. Patient has a history of mitral valve and tricuspid valve prolapse, CHF, pulmonary hypertension, atrial fibrillation, cardiomyopathy, and hypertension. Patient also has a history of GALEN a, which she uses a BiPAP nightly. Remote breast CA Discharge discussed with: patient, nurse, social work - Time Spent with Patient Total time spent providing and/or coordinating discharge services: Time spent: Less than 30 minutes - Discharge Medications Prescriptions: No Action Rivaroxaban [Xarelto] 20 mg PO DAILY Lasix 40 mg PO BID Effexor 75 mg PO DAILY Cholecalciferol (Vitamin D3) [Vitamin D] 1,000 unit PO DAILY Potassium 20 meq PO DAILY Tramadol HCl [Ultram] 50 mg PO Q8H PRN PRN Reason: Severe Pain Carvedilol [Coreg] 3.125 mg PO BIDWM Gabapentin [Neurontin] 100 mg PO TID Amiodarone [Cordarone] 200 mg PO DAILY Acetaminophen [Tylenol] 1,000 mg PO Q8H PRN PRN Reason: Pain Aspirin Enteric Coated [Aspirin EC] 81 mg PO DAILY Atorvastatin [Lipitor] 40 mg PO HS Melatonin [Melatin] 6 mg PO HS PRN PRN Reason: Sleep Polyethylene Glycol 3350 [MiraLAX] 17 gm PO DAILY Sennosides [Senokot] 8.6 mg PO HS PRN PRN Reason: Constipation DiphenhydraMINE [Benadryl] 50 mg PO Q6H PRN PRN Reason: Itching Lactobacillus Combination No.8 [Adult Probiotic] 1 each PO DAILY Glucos Sul 2Kcl/MSM/Chond/C/Mn [Glucosamine Chondroitin Cap] 2 each PO DAILY Betamethasone Dipropionate 15 gm TP BID Acyclovir [Zovirax] 800 mg PO TID PRN PRN Reason: Cold Sores Home Medications: Cholecalciferol (Vitamin D3) [Vitamin D3] 1,000 unit PO DAILY 08/22/17 [History] Effexor 75 mg PO DAILY 08/22/17 [History] Rivaroxaban [Xarelto] 20 mg PO DAILY 08/22/17 [History] Potassium 20 meq PO DAILY 12/25/17 [History] Acetaminophen [Tylenol] 1,000 mg PO Q8H PRN 10/31/18 [History] Acyclovir [Zovirax] 800 mg PO TID PRN 10/31/18 [History] Betamethasone Dipropionate 15 gm TP BID 10/31/18 [History] DiphenhydraMINE [Benadryl] 50 mg PO Q6H PRN 10/31/18 [History] Glucos Sul 2Kcl/MSM/Chond/C/Mn [Glucosamine Chondroitin Cap] 2 each PO DAILY 10/31/18 [History] Lactobacillus Combination No.8 [Adult Probiotic] 1 each PO DAILY 10/31/18 [History] Melatonin [Melatin] 6 mg PO HS PRN 10/31/18 [History] Polyethylene Glycol 3350 [MiraLAX] 17 gm PO DAILY 10/31/18 [History] Amiodarone [Cordarone] 200 mg PO DAILY #14 tablet 11/07/18 [Rx] Aspirin Enteric Coated [Aspirin EC] 81 mg PO DAILY #14 tablet. 11/07/18 [Rx] Atorvastatin [Lipitor] 40 mg PO HS #14 tablet 11/07/18 [Rx] Carvedilol [Coreg] 6.25 mg PO BIDWM #14 tablet 11/07/18 [Rx] Famotidine [Pepcid] 20 mg PO BID #28 tablet 11/07/18 [Rx] Gabapentin [Neurontin] 100 mg PO TID 14 Days #42 capsule 11/07/18 [Rx] Magnesium Oxide [Mag-Ox] 400 mg PO BID #28 tablet 11/07/18 [Rx] Allergies/Adverse Reactions: Allergy/AdvReac Type Severity Reaction Status Date / Time Amoxicillin [From Augmentin] Allergy Hives Verified 10/31/18 16:58 celecoxib [From Celebrex] Allergy Itching Verified 09/23/17 14:13 clavulanic acid Allergy Hives Verified 10/31/18 16:58 [From Augmentin] propoxyphene [From Darvon] Allergy Hallucinati Verified 08/22/17 10:16 ng adhesive tape AdvReac See Verified 10/31/18 16:58 Comments Date of admission: 10/31/18 16:34 Primary care physician: Rupesh Ledesma Consults: 10/31/18 17:07 Consult to Herbicide Sprayer [CONS] Routine Reason for SW Consult: d/c planning 10/31/18 18:08 Consult to Occupational Therapy [CONS] Routine Comment: Evaluate, develop and implement POC Reason for Consult: post mitral valve repair/AICD Sternal precautions Does patient have active BEDREST order?: No Is patient medically & hemodynamically stable?: Yes Patient assessed for mobility or mobilized this visit?: No Consult to Physical Therapy [CONS] Routine Comment: Evaluate, develop and implement POC Reason for Consult: post mitral valve repair/AICD placement Sternal precautions Does patient have active BEDREST order?: No Is patient medically & hemodynamically stable?: Yes Patient assessed for mobility or mobilized this visit?: No Consult to Recreational Therapy [CONS] Routine Comment: Evaluate, develop and implement POC 11/02/18 11:16 Consult to Wound Care [CONS] Routine Reason for Consult: Venous stasis ulcer in past with recent skin tear right pretibial Call Completed: No Discharging clinician: Liang Fajardo Anticipated date of discharge: 11/07/18 - Constitutional Vitals: Temp Pulse Resp BP Pulse Ox 97.9 F 57 17 95/61 94 11/07/18 06:51 11/07/18 06:51 11/07/18 06:51 11/07/18 06:51 11/07/18 06:51 General appearance: Present: A&O X 3, pleasant, no acute distress, obese, answers questions appropriately - Head Head exam: Present: atraumatic, normocephalic - Eye Eye exam: Present: PERRL, conjuntiva pink, sclera anicteric Pupils: Present: PERRL - Neck Neck exam general surgery: Present: supple, trachea midline. Absent: lymphadenopathy - Respiratory Respiratory exam: Present: CTAB. Absent: accessory muscle use, rales, rhonchi, wheezes - Cardiovascular Cardiovascular exam: Present: irregular rhythm, +S1, +S2. Absent: diastolic murmur, gallop, rubs, systolic murmur - GI/Abdominal GI/Abdominal exam: Present: normal bowel sounds, soft, no peritoneal signs. Absent: distended, tenderness - Extremities Exam Extremities exam: Present: warm, radial pulses palpable and symmetrical. Absent: calf tenderness, cyanotic, pedal edema - Neurological Exam Neurological exam: Present: CN II-XII intact, oriented X3, no focal deficits. Absent: pronater drift, facial droop, speech deficit - Skin Skin exam: Present: dry, intact - Patient Status Disposition: Home Health Service Condition: Good Functional capacity at discharge: independent ambulation Overall status at discharge: patient is progressing back to baseline - Discharge Instructions Follow Up With: Rupesh Ledesma [Primary Care Provider] - 11/09/18 3:40 pm (BELKIS Yeung) - Diet and Activity Activity: as per the cardiac rehab, as per physical therapy Diet: low fat, low cholesterol, low salt diet
== END 2018-11-07 09:25 | disposition home health service (06) | DRG 949 ==
LOC: INPGRE 10-31 16:34